=== PATIENT | male | born 1970 | race Caucasian/White ===

== ENCOUNTER 2020-11-25 13:21 | Outpatient (CLI) | payer BC, SELFPAY ==
--- NOTE | ~2020-11-25 | CT_ITS ---
EXAMINATION: CT abdomen pelvis w con EXAM DATE: 11/25/2020 13:55 INDICATION: Left lower quadrant pain, irregular bowel movements. TECHNIQUE: Spiral CT of the abdomen and pelvis was performed following intravenous injection of 100 m L Omnipaque 350. Axial, coronal and sagittal images of the abdomen and pelvis were reviewed. The do se-length product (DLP) for this examination was 1219.38 mGy-cm. The exposure was tailored according to patient size (auto mA exposure control), and iterative reconstruction (ASIR) was used as addition al dose reduction technique. There is no prior study for comparison. FINDINGS: The liver, spleen, adrenal glands and pancreas are unremarkable. Gallbladder is unremarkab le. No biliary obstruction. Portal and splenic veins are patent. Kidneys enhance symmetrically. T here is no hydronephrosis. There is punctate nonobstructing left superior calyceal stone. The prosta te is unremarkable. The bladder is unremarkable. There is no retroperitoneal or pelvic lymphadenopa thy. 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 The appendix is normal. The stomach and small bowel are unremarkable. There is expected amount of c olonic stool. No free intraperitoneal gas. The heart is normal in size. There are no pericardial or pleural effusions. The lung bases are unremarkable. The bones are unremarkable. IMPRESSION: 1. No acute intra-abdominal findings. Reviewed, dictated and finalized at location A.
== END 2020-11-25 13:22 ==
PROVIDERS: Visit Provider Physician Assistant
DX: R10.9 Unspecified abdominal pain (principal)
CPT/HCPCS: 74177; Q9967

== ENCOUNTER 2022-01-04 12:49 | Outpatient (CLI) | payer OTHER, SELFPAY ==
--- NOTE | ~2022-01-04 | US_ITS ---
EXAMINATION: US venous doppler [facility] DATE: 01/04/2022 13:43 INDICATION: Bilateral lower limb pain TECHNIQUE: Rachel scale images without and with compression and Doppler images of the bilateral lower e xtremity veins were obtained. COMPARISON: None FINDINGS: The right common femoral vein, profunda femoral vein, femoral vein, popliteal vein, peroneal trunk, p osterior tibial veins, and greater saphenous vein are patent. The left common femoral vein, profunda femoral vein, femoral vein, popliteal vein, peroneal trunk, po sterior tibial veins, and greater saphenous vein are patent. IMPRESSION: 1. Patent bilateral lower extremity veins. No evidence of deep venous thrombosis. Reviewed, dictated and finalized at location A. IMPRESSION: 1. Patent bilateral lower extremity veins. No evidence of deep venous thrombosi s.
== END 2022-01-04 12:50 | disposition home or self-care (01) ==
PROVIDERS: PCP Family Medicine; Visit Provider Family Medicine
DX: M79.606 Pain in leg, unspecified (principal)
CPT/HCPCS: 93970